=== PATIENT | male | born 1980 | race American Indian/Alaskan Native ===

== ENCOUNTER 2021-12-01 15:56 | Emergency (ER) | payer OTHER ==
[2021-12-01 18:28] VITALS: BP 125/84
[2021-12-01] MEDS ORDERED: KETOROLAC 30 MG/1 ML INJ IM ONE (22:42)
[2021-12-01] MEDS ORDERED: CYCLOBENZAPRINE 10 MG TAB PO ONE (22:42)
[2021-12-01] MEDS ORDERED: dexAMETHasone 20 MG/5 ML VIAL IM ONE (22:42)
--- NOTE | 2021-12-01 23:14 | XRay Report ---
Lumbar spine, 3 views HISTORY: Fall COMPARISON: None FINDINGS: Lumbar alignment is normal. Vertebral body heights are maintained. No evidence of fracture. Moderate disc space height loss at L4-L5 and L5-S1. There are transitional features at the lumbosacr al junction on the left. SI joints are intact. IMPRESSION: No acute process. Lower lumbar spondylosis, as above. Signer Name: Yusef Fong MD Signed: 12/01/2021 11:10 PM Workstation Name: [id number]
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
== END 2021-12-01 23:40 | disposition home or self-care (01) ==
LOC: ED 15:56
DX: S39.012A Strain of muscle, fascia and tendon of lower back, initial encounter (principal); X58.XXXA Exposure to other specified factors, initial encounter; Y93.89 Activity, other specified; Y92.89 Other specified places as the place of occurrence of the external cause; Y99.8 Other external cause status
CPT/HCPCS: 72100; 96372; 99283; J1100; J1885